=== PATIENT | male | born 1990 | race Caucasian/White ===

== ENCOUNTER 2025-01-31 20:29 | Emergency (ER) | payer BC, SELFPAY ==
[2025-01-31] VITALS (16 sets, daily range): BP systolic 99–131; BP diastolic 60–83; PULSE 55–92; RESP 12–27; TEMP 36–36.5; O2SAT 97–99
--- NOTE | ~2025-01-31 | CT_ITS ---
Non-contrast Head CT History: Syncope Technique: Axial non-contrast imaging of the brain was performed. Dose reduction technique was used on this scan by utilizing automated exposure control and iterative reconstruction technique. The dose -length product (DLP) was 681.00 mGy-cm. Findings: There is no evidence of intracranial hemorrhage, mass lesion, or acute infarct. Brain par enchyma appears normal. The ventricles and subarachnoid spaces are normal in size. The calvarium ap pears normal. The visualized paranasal sinuses and mastoid air cells are clear. Impression: No significant abnormality seen. Reviewed, dictated and finalized at location . Impression: No significant abnormality seen.
--- NOTE | ~2025-01-31 | XR_ITS ---
EXAMINATION: XR chest 2V Exam Date/Time: 01/31/2025 20:50 CDT HISTORY: Dizziness Comparison: None. RESULT: Lines, tubes, and devices: None. Lungs and pleura: Clear. Cardiomediastinal silhouette: Normal. Other: No acute osseous or upper abdominal finding. IMPRESSION: No acute cardiopulmonary process. Reviewed, dictated and finalized at location K.
--- OUTSIDE RECORDS SUMMARY | 2025-01-31 20:31 | XMS_ITS | Continuity of Care Document ---
Author Organization [facility] Address [address] [place] [address] Phone Care Team Providers Care Account Retention Representative Name Role Phone Shereen Hinson Unavailable Unavailable Advance Directives Directive Yes / No Effective Date File Name No Information Encounters Encounter Description Practice Location Reason(s) For Visit Diagnoses Date Provider Providers Copied on Encounter [facility], [address], [place], [place], [id number], [place] tel:[phone] [facility] No Information Sep-2 5-200 0 Joya Regan. [address] , [address], [place], [address], [place]. tel:[phone] Family History Family Member Type Diagnosis Age At Onset No Information Payers Payer name Insurance type Covered alliance party ID Authoriza tion(s) No Information Social History Type Description Quantity Date Captured Comments Sex Male Smoking Status No Information Chief Complaint And Reason For Visit No Information Reason For Referral Reason For Referral No Information History Of Present Illness Encounter Date Complaint History Of Prese nt Illness No Information Functional Status Date Functional Assessmen t No Information Instructions Date Instruction Additional Infor mation No Information Assessments Type Assessment Date No Information Patient Care Teams Name Effective Dates (start - stop) Status Members No Information
--- OUTSIDE RECORDS SUMMARY | 2025-01-31 20:31 | XMS_ITS | Clinical Summary ---
Author Organization [facility] Address [address] [place] [address] Care Team Providers Care System Safety Engineer Name Role Phone Unavailable Primary Care Provider Unavailabl e Source Comments [facility],non-owned Affiliates and Associated Physician Practices is amultiple site organization consisting of ambulatory clinics and hospital sitesin [place], [place], [place] and [place]. This disclosure is being madepursuant to the Care Everywhere program and may not contain all information available regarding this patient. 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 Gender Identity Not on file Sexual Orientation Not on file Plan of Treatment Health Maintenance Due Date Last Done Comments HIV SCREENING 2006 HEPATITIS C SCREENING 03/23/2009 DTAP/TDAP/TD VACCINES (1 - Tdap) 2010 HEPATITIS B VACCINE (1 of 3 - 19+ 3-dose series) 2010 COVID-19 VACCINE (1 - 2023-2 5 season) 2024 DEPRESSION SCREENING 10/13/2024 INFLUENZA VACCINE (Season Ended) 2025 ZOSTER VACCINE (1 of 2) 2041 HIB VACCINE Aged Out No longer eligi ble based on patient's age to complete this topic HPV VACCINE Aged Out No longer eligi ble based on patient's age to complete this topic MENINGOCOCCAL (Group B) VACC INE SHARED DECISION-MAKING Aged Out No longer eligibl e based on patient's age to complete this topic MENINGOCOCCAL GROUPS A/C/Y/W VACCINE Aged Out No longer eligible b ased on patient's age to complete this topic PNEUMOCOCCAL VACCINE Aged Out No long er eligible based on patient's age to complete this topic
--- NOTE | 2025-01-31 20:39 | ECG_ITS ---
Test Date: 2025-01-31 21:28:07 Measurements Intervals Keller Rate: 69 P: 67 IN: 139 QRS: 89 QRSD: 106 T: 73 QT: 397 QTc: 426 Interpretive Statements SINUS RHYTHM INCOMPLETE RIGHT BUNDLE BRANCH BLOCK DELAYED PRECORDIAL R/S TRANSITION BASELINE ARTIFACT- I, II, V5 BORDERLINE ECG No previous ECG available for comparison Electronically Signed On 02-01-2025 06:13:18 CDT by Adam Romero D.O.
[2025-01-31 21:38] LABS: Basophils Absolute Auto 0.1 K/mm3 (0.0-0.1); Basophils Percent Auto 0.8 % (0.2-1.2); Eosinophils Absolute Auto 0.4 K/mm3 (0-0.3); Eosinophils Percent Auto 3.4 % (0-4.4); Hematocrit 39.9 % (42.0-52.0); Hemoglobin 13.7 g/dL (14.0-18.0); Immature Granulocyte Absolute 0.03 K/mm3 (0.00-0.031); Immature Granulocyte Percent A 0.3 % (0-0.5); Lymphocytes Absolute Auto 3.27 K/mm3 (0.9-3.2); Lymphocytes Percent Auto 29.9 % (18.3-44.2); Mean Corpuscular HGB Conc 34.3 g/dl (32-36); Mean Corpuscular Hemoglobin 32.5 pg (26-34); Mean Corpuscular Volume 94.5 fl (80-100); Mean Platelet Volume 9.3 fl (7.4-10.4); Monocytes Absolute Auto 0.9 K/mm3 (0.1-0.6); Monocytes Percent Auto 7.9 % (2.6-8.5); Neutrophils Absolute Auto 6.3 K/mm3 (1.3-6.7); Neutrophils Percent Auto 57.7 % (45.5-73.1); Platelet Count Result 229 k/mm3 (150-375); Red Blood Count 4.22 M/mm3 (4.6-6.20); Red Cell Distribution Width 12.3 % (11.5-14.5)
[2025-01-31 21:49] LABS: Alanine Aminotransferase 33 U/L (6-50); Albumin Level 4.7 g/dL (3.5-5.1); Alkaline Phosphatase 53 U/L (38-126); Anion Gap 9 mmol/L (4-12); Aspartate Amino Transferase 24 U/L (17-59); Bilirubin,Total 0.4 mg/dL (0.2-1.3); Blood Urea Nitrogen 19 mg/dL (9-20); Calcium 9.2 mg/dL (8.4-10.2); Carbon Dioxide 23 mmol/L (22-30); Chloride 106 mmol/L (98-107); Estimated CRCL calculation 91 ml/min; Estimated Glomerular Filt Rate > 60; Glucose 102 mg/dL (65-110); Potassium 3.9 mmol/L (3.4-5.0); Sodium 138 mmol/L (137-145)
--- NOTE | 2025-01-31 23:10 | PC.NURSE ---
report to beau espino - all questions answered.
[2025-02-01] VITALS (10 sets, daily range): BP systolic 106–125; BP diastolic 60–69; PULSE 59–75; RESP 12–21; O2SAT 97–100
--- NOTE | 2025-02-01 01:08 | ED_ITS ---
HPI - General Adult General Chief complaint: Seizure Stated complaint: Seizure-no history Time Seen by Provider: 02/01/25 00:34 History of Present Illness HPI narrative: Patient 34-year-old gentleman presents emergency department with chief complaint of syncopal episode. The patient was sitting on the bed became lightheaded and reports that he he had some twitching in his arms and then was still shaking but was talking the patient had no loss of bowel or bladder control reports that he had an episode like this some time ago but never was evaluated the patient states that he did have preceding symptoms and felt lightheaded and felt as though he was going to pass out Related Data Allergies Allergy/AdvReac Type Severity Reaction Status Date / Time azithromycin Allergy Severe Dyspnea / Verified 01/31/25 20:30 SOB Review of Systems 2 Review of Systems: A 10 system review of systems was completed on the patient and is negative except for what is stated in the HPI. Nursing and ancillary documentation was reviewed. Exam 2 Narrative: GENERAL: Well-appearing, well-nourished, and in no acute distress. HEAD: Normocephalic, atraumatic. EYES: PERRLA and EOMI. ENT: Nares clear, no rhinorrhea or epistaxis. Mucous membranes moist. NECK: Supple. CHEST: Clear to auscultation. No respiratory distress. HEART: Regular rate and rhythm. No murmur heard. Normal peripheral pulses. ABDOMEN: Soft, nontender, nondistended, normal active bowel sounds. EXTREMITIES: Normal range of motion. No edema. SKIN: Warm, dry, no rash. NEURO: No focal deficits. Alert and oriented x3. PSYCH: Normal mood and affect. Course Vital Signs Vital signs: Vital Signs Temperature 36.0 C L 01/31/25 20:32 Pulse Rate 85 01/31/25 20:32 Respiratory Rate 20 01/31/25 20:32 Blood Pressure 131/78 01/31/25 20:32 Pulse Oximetry 98 01/31/25 20:32 Oxygen Delivery Room Air 01/31/25 20:32 Temperature 36.5 C 01/31/25 22:30 Pulse Rate 85 01/31/25 22:46 Respiratory Rate 21 H 01/31/25 22:30 Blood Pressure 112/71 01/31/25 22:46 Pulse Oximetry 98 02/01/25 02:49 Oxygen Delivery Room Air 02/01/25 02:49 Medical Decision Making [facility] Narrative Medical decision making narrative: Differential diagnosis includes Ca, dysrhythmia, electrolyte abnormality, PE, seizure Patient's history reports preceding symptoms and patient had no postictal phase afterwards most likely the patient's symptoms were a syncopal episode with myoclonus the patient will be discharged to follow-up with primary care Vital Signs Vital Signs: Vital Signs Temperature 36.0 C L 01/31/25 20:32 Pulse Rate 85 01/31/25 20:32 Respiratory Rate 20 01/31/25 20:32 Blood Pressure 131/78 01/31/25 20:32 Pulse Oximetry 98 01/31/25 20:32 Oxygen Delivery Room Air 01/31/25 20:32 Temperature 36.5 C 01/31/25 22:30 Pulse Rate 85 01/31/25 22:46 Respiratory Rate 21 H 01/31/25 22:30 Blood Pressure 112/71 01/31/25 22:46 Pulse Oximetry 98 02/01/25 02:49 Oxygen Delivery Room Air 02/01/25 02:49 Lab Data 01/31/25 21:22 01/31/25 21:22 Labs: Lab Results 01/31/25 02/01/25 02/01/25 Range/Units 21:22 01:11 01:24 WBC 11.0 H (4.5-10.0) K/mm3 RBC 4.22 L (4.6-6.20) M/mm3 Hgb 13.7 L (14.0-18.0) g/dL Hct 39.9 L (42.0-52.0) % MCV 94.5 (80-100) fl MCH 32.5 (26-34) pg MCHC 34.3 (32-36) g/dl RDW 12.3 (11.5-14.5) % Plt Count 229 (150-375) k/mm3 MPV 9.3 (7.4-10.4) fl Immature Gran % (Auto) 0.3 (0-0.5) % Neut % (Auto) 57.7 (45.5-73.1) % Lymph % (Auto) 29.9 (18.3-44.2) % [place] % (Auto) 7.9 (2.6-8.5) % Eos % (Auto) 3.4 (0-4.4) % Baso % (Auto) 0.8 (0.2-1.2) % Lymph # (Auto) 3.27 H (0.9-3.2) K/mm3 [place] # (Auto) 0.9 H (0.1-0.6) K/mm3 Eos # (Auto) 0.4 H (0-0.3) K/mm3 Baso # (Auto) 0.1 (0.0-0.1) K/mm3 Abs Immat Gran (auto) 0.03 (0.00-0.031) K/mm3 Absolute Neuts (auto) 6.3 (1.3-6.7) K/mm3 Absolute Nucleated RBC 0.000 (0.0-0.012) K/mm3 Nucleated RBC % 0.0 (0.0-0.2) % D-Dimer < 0.27 (<0.48) ug/mL Sodium 138 (137-145) mmol/L Potassium 3.9 (3.4-5.0) mmol/L Chloride 106 (98-107) mmol/L Carbon Dioxide 23 (22-30) mmol/L Anion Gap 9 (4-12) mmol/L BUN 19 (9-20) mg/dL Creatinine 0.90 (0.7-1.3) mg/dL Estim Creat Clear Calc 91 ml/min Estimated GFR > 60 (59 - ) Glucose 102 (65-110) mg/dL Calcium 9.2 (8.4-10.2) mg/dL Magnesium 2.1 (1.6-2.3) mg/dL Total Bilirubin 0.4 (0.2-1.3) mg/dL AST 24 (17-59) U/L ALT 33 (6-50) U/L Alkaline Phosphatase 53 (38-126) U/L Troponin I < 0.012 (0.000-0.034) ng/mL Total Protein 7.0 (6.3-8.2) g/dL Albumin 4.7 (3.5-5.1) g/dL Urine Color Yellow (Yellow) Urine Appearance Clear (Clear) Urine pH 6.0 (5.0-9.0) Ur Specific Grand Chain 1.019 (1.001-1.035) Urine Protein Negative (Negative) mg/dL Urine Glucose (UA) Negative (Negative) mg/dL Urine Ketones Trace H (Negative) mg/dL Ur Blood (Man) Negative (Negative) Urine Nitrate Negative (Negative) Urine Bilirubin Negative (Negative) Urine Urobilinogen 1.0 (<2.0) mg/dL Leukocyte Esterase Rfl 1+ H (Negative) VERONICA/UL Urine RBC 0-2 (0-2) /hpf Urine WBC 11-20 H (0-3) /hpf Ur Squamous Epith Cells None seen (Few) /hpf Urine Bacteria None seen /hpf Urine Casts 0-2 Discharge Plan Discharge Clinical Impression: Syncope Patient Disposition: Home Condition: Stable Instructions: Antibiotic Form, Syncope (ED) Patient Language: Guyanese Follow-up/Referrals: Tommy Hale DO [Physician] - PHYSICIAN,PROFESSIONAL SERVICES MANAGER [Primary Care Provider] - Time of Disposition: 03:01
--- OUTSIDE RECORDS SUMMARY | 2025-02-01 01:38 | XMS_ITS | Clinical Summary ---
Author Organization [facility] Address [address] [place] [address] Care Team Providers Care Calender Operator Name Role Phone Unavailable Primary Care Provider Unavailabl e Source Comments [facility],non-owned Affiliates and Associated Physician Practices is amultiple site organization consisting of ambulatory clinics and hospital sitesin [place], [place], [place] and [place]. This disclosure is being madepursuant to the Care Everywhere program and may not contain all information available regarding this patient. 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
--- OUTSIDE RECORDS SUMMARY | 2025-02-01 01:38 | XMS_ITS | Continuity of Care Document ---
Author Organization [facility] Address [address] [place] [address] Phone Care Team Providers Care Registered Dietitian Name Role Phone Shereen Hinson Unavailable Unavailable Advance Directives Directive Yes / No Effective Date File Name No Information Encounters Encounter Description Practice Location Reason(s) For Visit Diagnoses Date Provider Providers Copied on Encounter [facility], [address], [place], [place], [id number], [place] tel:[phone] [facility] No Information Sep-2 5-200 0 Joya Regan. [address], [place], [address], [place]. tel:[phone] Family History Family Member Type Diagnosis Age At Onset No Information Payers Payer name Insurance type Covered green party ID Authoriza tion(s) No Information Social [...]
[2025-02-01 01:45] LABS: Add Urine Microscopic? YES; Appearance Urine Clear (Clear); Bacteria Urine None Seen /hpf; Bilirubin Urine Negative (Negative); Blood Urine Negative (Negative); Color Urine Yellow (Yellow); Glucose Urine UA Negative (Negative); Ketones Urine Trace mg/dL (Negative); Leukocyte Esterase Ur 1+ LEU/UL (Negative); Nitrate Urine Negative (Negative); Non Pathogenic Casts 0-2; Protein Urine Negative (Negative); RBC Urine 0-2 /hpf (0-2); Specific Grav Ur 1.019 (1.001-1.035); Squamous Epithelial Cell Urine None Seen /hpf (Few)
[2025-02-01 02:03] LABS: Magnesium 2.1 mg/dL (1.6-2.3)
[2025-02-01] MEDS: NICOTINE (*PBKC) 21 MG PATCH 1 PATCH TRANSDERM (02:06)
[2025-02-01 02:15] LABS: Troponin I < 0.012 ng/mL (0.000-0.034)
[2025-02-01 02:33] LABS: D Dimer < 0.27 ug/mL (<0.48)
== END 2025-02-01 03:30 | disposition home or self-care (01) ==
PROVIDERS: Emergency Provider Emergency Medicine
DX: R55 Syncope and collapse (principal)
CPT/HCPCS: 36415; 70450; 71046; 80053; 81001; 83735; 84484; 85025; 85380; 87086; 93005; 99284; A9270